=== PATIENT | female | born 1960 | race Caucasian/White ===

== ENCOUNTER 2020-05-03 12:08 | Emergency (ER) | payer SELFPAY ==
[2020-05-03 12:10] VITALS: BP 122/84; PULSE 84; RESP 16; TEMP 36.3; O2SAT 100; BMI 24.7
--- NOTE | 2020-05-03 12:11 | CTR_ITS ---
PROCEDURE INFORMATION: Exam: CT Head Without Contrast Exam date and time: 05/03/2020 12:26 PM Age: 60 years old Clinical indication: Injury or trauma; Fall; Blunt trauma (contusions or hematomas); Additional info: Head injury, gcs 3 TECHNIQUE: Imaging protocol: Computed tomography of the head without contrast. Radiation optimization: All CT scans at this facility use at least one of these dose optimization techniques: automated exposure control; mA and/or kV adjustment per patient size (includes targeted exams where dose is matched to clinical indication); or iterative reconstruction. COMPARISON: No relevant prior studies available. RADIATION DOSE METRICS: Total DLP (mGy-cm): 879.39 FINDINGS: Tubes, catheters and devices: Endotracheal tube. Brain: No acute post-traumatic brain injury. Symmetric caliber of the cortical sulci. Small-vessel ischemic change, including a left basal ganglia lacunar infarct of uncertain age. Cerebral ventricles: Normal configuration of the ventricles. Bones/joints: No acute calvarial injury. Paranasal sinuses: No sinus fluid. Mastoid air cells: No mastoid effusion. Soft tissues: Left parietal scalp hematoma. CT/CT head wo con* [id number] IMPRESSION: 1. Left parietal scalp hematoma. 2. No acute post-traumatic brain injury. 3. Small-vessel ischemic change, including a left basal ganglia lacunar infarct of uncertain age. Radiation Dose CTDIVOL = (mGy): DLP = 879.39 (mGy-cm)
--- NOTE | 2020-05-03 12:11 | CTR_ITS ---
PROCEDURE INFORMATION: Exam: CT Cervical Spine Without Contrast Exam date and time: 05/03/2020 12:26 PM Age: 60 years old Clinical indication: Injury or trauma; Fall; Blunt trauma; Additional info: Fall, head injury TECHNIQUE: Imaging protocol: Computed tomography images of the cervical spine without contrast. Radiation optimization: All CT scans at this facility use at least one of these dose optimization techniques: automated exposure control; mA and/or kV adjustment per patient size (includes targeted exams where dose is matched to clinical indication); or iterative reconstruction. COMPARISON: No relevant prior studies available. RADIATION DOSE METRICS: Total DLP (mGy-cm): 600.99 FINDINGS: Beam hardening artifact in association with metallic necklace. Tubes, catheters and devices: Endotracheal tube. Bones/joints: No acute bony injury or malalignment in the visualized cervical spine. Discs/Spinal canal/Neural foramina: Degenerative change and disc bulging. Nasopharynx: Fluid in the posterior nasopharynx and oropharynx. Thyroid: Inhomogeneous attenuation of the thyroid with a 6 mm nodular hypodensity with peripheral hyperdensity in the posterior left thyroid. Lungs: Apical blebs and interstitial prominence. Soft tissues: Ligamentous calcification. CT/CT cervical spin wo con* [id number] IMPRESSION: 1. No acute bony injury or malalignment in the visualized cervical spine. 2. Additional findings as described above. COMMENTS: Consistent with the [employer]'s Incidental Findings Committee white paper (J Am Jhon Radiol 2015): In patients aged 35 years and older with an incidental thyroid nodule equal to or greater than 1.[address], MRI or extrathyroidal US, further evaluation with dedicated thyroid US is recommended for patients with normal life expectancy and without comorbidities. For smaller nodules without suspicious features, no further evaluation or follow up is recommended. Radiation Dose CTDIVOL = (mGy): DLP = 600.99 (mGy-cm)
--- NOTE | 2020-05-03 12:12 | XRR_ITS ---
PROCEDURE INFORMATION: Exam: XR Chest, 1 View Exam date and time: 05/03/2020 12:33 PM Age: 60 years old Clinical indication: Device placement; Other: Et and ng placement; Additional info: Fall, post intubation TECHNIQUE: Imaging protocol: XR of the chest Views: 1 view. COMPARISON: No relevant prior studies available. FINDINGS: Tubes, catheters and devices: Endotracheal and feeding tubes. The endotracheal tube terminates 7.4 cm above the orly. Lungs: COPD, interstitial prominence, and chronic granulomatous disease. Pleural spaces: No pleural effusion. Heart/Mediastinum: No cardiomegaly. Bones/joints: Degenerative change. XR/XR chest 1V portable [id number] IMPRESSION: COPD, interstitial prominence, and chronic granulomatous disease.
[2020-05-03 12:38] VITALS: RESP 15
[2020-05-03 13:06] VITALS: BP 144/101; PULSE 108; RESP 18; O2SAT 100
[2020-05-03] MEDS: propofol 1,000 MG/100 ML INJ 1.9 MG IV (13:08)
[2020-05-03 13:19] LABS: ABG PCO2 42.3 mmHg (35-45); ABG PH Result 7.34 (7.35-7.45); Arterial Blood Gas Hematocrit 48.7 % (37-47); Base Excess ABG -2.8 mmol/L (-2.0-2.0); Blood Gas Allen Test Pos; Blood Gas Sample Type Arterial; HCO3 ABG 22.9 mmol/L (22-26)
[2020-05-03 13:21] LABS: Blood Gas Operator Identificat MONRO; Blood Gas Sample Site Radial, left; Oxygen Device VENT
--- NOTE | 2020-05-03 13:39 | ED_ITS ---
HPI - Trauma General: Chief Complaint: Trauma Stated Complaint: HEAD TRAUMA S/P FALL Time Seen by Provider: 05/03/20 12:11 Source: EMS Mode of arrival: EMS Limitations: other (intubated) History of Present Illness: HPI narrative: 60-year-old female patient who was brought in by EMS already intubated. Per EMS she was at [facility] when she slipped and fell and hit her head on a cab inet. She sustained immediate loss of consciousness. When EMS arrived there she appeared to have a seizure. She was unresponsive and so they proceeded to intubate her. She was going to be transferred to [facility] in [place] however because of the road conditions due to the winter she was diverted here for stabilization and disposition. Unable to obtain further history. MD complaint: fall Onset (ago): hour(s) (1) Loss of Consciousness: yes Location: head Review of Systems General: Reports: ROS unobtainable due to endotracheal tube Physical Exam Const: OTHER: intubated HENMT: HEAD & SCALP: laceration (6 cm scalp laceration in the left parietal region. It is bleeding.); no palpable skull fracture Eye: COMMON NORMALS: Equal, round and reactive pupils present and EOMs intact bilaterally PUPIL: Yes Equal, round and reactive pupils present Neck/C-Spine: OTHER: Hard cervical collar in place, no obvious deformity on palpation of her cervical spine Chest: COMMONS NORMALS: normal inspection of the chest and normal palpation of entire chest wall Resp: COMMON NORMALS: clear to auscultation bilaterally AUSCULTATION: clear to auscultation bilaterally Cardio: COMMON NORMALS: regular rhythm, S1 normal heart sound present, S2 normal heart sound present and No murmurs present (Cardio) RATE: tachycardic RHYTHM: regular rhythm HEART SOUNDS: S1 normal heart sound present and S2 normal heart sound present GI: COMMON NORMALS: Soft to palpation INSPECTION: Yes normal to inspection and No abdominal wall ecchymosis PALPATION: Yes Soft to palpation OTHER: no bruising noted. : EXTERNAL FEMALE EXAM: No External ecchymosis (female) Extremity: NARRATIVE EXTREMITY EXAM: Moves all limbs Neuro: OTHER: Intubated Procedures Laceration Laceration 1: Site: scalp Side (If applicable): left Size (cm): 6 Description: linear Depth: simple, single layer Pre-repair: wound explored, irrigated extensively and deep structures intact Skin layer closed with: other ([place]) Number of sutures: 8 ([place]) MDM - Trauma MDM Narrative: Medical decision making narrative: Patient with a head injury following a fall. Immediate loss of consciousness, EMS said she was unresp onsive on arrival and had a seizure so she was intubated and mechanically ventilated. In the emergency room she was stable, she was given a dose of intravenous Keppra for seizure prophylaxis. Head CT was negative for bleed. She is transferred to [facility] in [place] for further evaluation and management. Medical Records: Attestation: I reviewed the patient's medical records. Lab Data: Attestation: I reviewed the patient's lab results. Labs: Lab Results 05/03/20 05/03/20 05/03/20 Range/Units 12:58 12:58 12:58 WBC 19.0 H (4.0-10.0) 10^3/ uL RBC 5.14 (4.1-5.3) 10^6/u L Hgb 16.5 H (11.5-15.3) g/dL Hct 49.5 H (37.0-47.0) % MCV 96.3 (81-99) fL MCH 32.1 (28.0-34.0) pg MCHC 33.3 (30.0-36.0) g/dL RDW 13.0 (12.1-15.1) % Plt Count 223 (130-400) 10^3/c mm MPV 10.8 H (7.4-10.4) fL Neut % (Auto) 83.7 % Lymph % (Auto) 9.8 % [place] % (Auto) 5.1 % Eos % (Auto) 0.4 % Baso % (Auto) 0.3 % Neut # (Auto) 15.91 H (1.8-7.7) 10^3/u L Lymph # (Auto) 1.9 (0.8-4.8) 10^3/u L [place] # (Auto) 1.0 H (0.2-0.9) 10^3/u L Eos # (Auto) 0.1 (0.0-0.8) 10^3/u L Baso # (Auto) 0.1 (0.0-0.1) 10^3/u L Nucleated RBC % (a uto) 0 % Nucleated RBCs # 0.0 /100WBC PT 15.60 H (12.1-14.9) SECO NDS INR 1.20 (0.8-1.2) Specimen Type Sample Site ABG pH (7.35-7.45) ABG pCO2 (35-45) mmHg ABG pO2 (80.0-100.0) mmH g ABG HCO3 (22-26) mmol/L ABG Base Excess (-2.0-2.0) mmol/ L Cornell Test Hematocrit (37-47) % O2 Delivery Device FiO2 % Tidal Volume PEEP cmH20 Oil Burner Repairer ID Sodium 132 L (136-145) mmol/L Potassium 3.8 (3.5-5.1) mmol/L Chloride 101 (98-107) mmol/L Carbon Dioxide 23 (22-29) mmol/L Anion Gap 11.8 (5-19) BUN 8 (6-20) mg/dL Creatinine 0.7 (0.5-0.9) mg/dL GFR Calculation 85.9 L (90-130) mL/min Glucose 93 (65-115) mg/dL Calculated Osmolal ity 272 L (285-295) mOsm/k g Calcium 9.1 (8.5-10.5) mg/dL Total Bilirubin 0.4 (0.15-1.2) mg/dL AST 88 H (0-32) U/L ALT 80 H (0-33) U/L Alkaline Phosphata se 120 H (35-105) IU/L Total Protein 8.4 (6.6-8.7) g/dL Albumin 4.5 (3.5-5.2) g/dL Globulin 3.9 (1.3-4.6) g/dL 05/03/20 Range/Units 13:06 WBC (4.0-10.0) 10^3/ uL RBC (4.1-5.3) 10^6/u L Hgb (11.5-15.3) g/dL Hct (37.0-47.0) % MCV (81-99) fL MCH (28.0-34.0) pg MCHC (30.0-36.0) g/dL RDW (12.1-15.1) % Plt Count (130-400) 10^3/c mm MPV (7.4-10.4) fL Neut % (Auto) % Lymph % (Auto) % [place] % (Auto) % Eos % (Auto) % Baso % (Auto) % Neut # (Auto) (1.8-7.7) 10^3/u L Lymph # (Auto) (0.8-4.8) 10^3/u L [place] # (Auto) (0.2-0.9) 10^3/u L Eos # (Auto) (0.0-0.8) 10^3/u L Baso # (Auto) (0.0-0.1) 10^3/u L Nucleated RBC % (a uto) % Nucleated RBCs # /100WBC PT (12.1-14.9) SECO NDS INR (0.8-1.2) Specimen Type Arterial Sample Site Radial, left ABG pH 7.34 L (7.35-7.45) ABG pCO2 42.3 (35-45) mmHg ABG pO2 137.0 H (80.0-100.0) mmH g ABG HCO3 22.9 (22-26) mmol/L ABG Base Excess -2.8 L (-2.0-2.0) mmol/ L Cornell Test Pos Hematocrit 48.7 H (37-47) % O2 Delivery Device Vent FiO2 40.0 % Tidal Volume 0.40 PEEP 8.0 cmH20 Oil Burner Repairer ID [place] Sodium (136-145) mmol/L Potassium (3.5-5.1) mmol/L Chloride (98-107) mmol/L Carbon Dioxide (22-29) mmol/L Anion Gap (5-19) BUN (6-20) mg/dL Creatinine (0.5-0.9) mg/dL GFR Calculation (90-130) mL/min Glucose (65-115) mg/dL Calculated Osmolal ity (285-295) mOsm/k g Calcium (8.5-10.5) mg/dL Total Bilirubin (0.15-1.2) mg/dL AST (0-32) U/L ALT (0-33) U/L Alkaline Phosphata se (35-105) IU/L Total Protein (6.6-8.7) g/dL Albumin (3.5-5.2) g/dL Globulin (1.3-4.6) g/dL Imaging Data^: Other CT: Attestation: I personally reviewed and interpreted this imaging study as follows: Radiologist's impression: [facility] [address] [place] [address] CT Scan Report Signed Patient: Sruthi Woodson #: [id number] : 2Acc#:[id number] Age/Sex: 60 / FADM Date: 05/03/20 Loc: ERRoom/Bed: Attending Dr: Ordering Provider/Ordering MD: Joana Pand[place] [facility] [place] of Service: 05/03/20 Procedure(s): CT cervical spin wo con* [id number] Accession Number(s): [id number] Report Number: [id number] PROCEDURE INFORMATION: Exam: CT Cervical Spine Without Contrast Exam date and time: 05/03/2020 12:26 PM Age: 60 years old Clinical indication: Injury or trauma; Fall; Blunt trauma; Additional info: Fall, head injury TECHNIQUE: Imaging protocol: Computed tomography images of the cervical spine without contrast. Radiation optimization: All CT scans at this facility use at least one of these dose optimization techniques: automated exposure control; mA and/or kV adjustment per patient size (includes targeted exams where dose is matched to clinical indication); or iterative reconstruction. COMPARISON: No relevant prior studies available. RADIATION DOSE METRICS: Total DLP (mGy-cm): 600.99 FINDINGS: Beam hardening artifact in association with metallic necklace. Tubes, catheters and devices: Endotracheal tube. Bones/joints: No acute bony injury or malalignment in the visualized cervical spine. Discs/Spinal canal/Neural foramina: Degenerative change and disc bulging. Nasopharynx: Fluid in the posterior nasopharynx and oropharynx. Thyroid: Inhomogeneous attenuation of the thyroid with a 6 mm nodular hypodensity with peripheral hyperdensity in the posterior left thyroid. Lungs: Apical blebs and interstitial prominence. Soft tissues: Ligamentous calcification. CT/CT cervical spin wo con* [id number] IMPRESSION: 1. No acute bony injury or malalignment in the visualized cervical spine. 2. Additional findings as described above. COMMENTS: Consistent with the [employer]'s Incidental Findings Committee white paper (J Am Jhon Radiol 2015): In patients aged 35 years and older with an incidental thyroid nodule equal to or greater than 1.[address], MRI or extrathyroidal US, further evaluation with dedicated thyroid US is recommended for patients with normal life expectancy and without comorbidities. For smaller nodules without suspicious features, no further evaluation or follow up is recommended. Radiation Dose CTDIVOL = (mGy): DLP = 600.99 (mGy-cm) Dictated By:Lopez Rosas MD Signed By:Lopez Rosas MDSigned Date/Time:05/03/20 1308 DD/ 1307 CXR: Attestation: I personally reviewed and interpreted this imaging study as follows: Radiologist's impression: [facility] [address] [address] XRay Report Signed Patient: Sruthi Woodson #: [id number] : 2Acct#:[id number] Age/Sex: 60 / FADM Date: 05/03/20 Loc: [facility]/Bed: Attending Dr: Ordering Provider/Ordering MD: Joana Pandya [place], [facility] [place] of Service: 05/03/20 Procedure(s): XR chest 1V portable [id number] Accession Number(s): [id number] Report Number: [id number] PROCEDURE INFORMATION: Exam: XR Chest, 1 View Exam date and time: 05/03/2020 12:33 PM Age: 60 years old Clinical indication: Device placement; Other: Et and ng placement; Additional info: Fall, post intubation TECHNIQUE: Imaging protocol: XR of the chest Views: 1 view. COMPARISON: No relevant prior studies available. FINDINGS: Tubes, catheters and devices: Endotracheal and feeding tubes. The endotracheal tube terminates 7.4 cm above the orly. Lungs: COPD, interstitial prominence, and chronic granulomatous disease. Pleural spaces: No pleural effusion. Heart/Mediastinum: No cardiomegaly. Bones/joints: Degenerative change. XR/XR chest 1V portable [id number] IMPRESSION: COPD, interstitial prominence, and chronic granulomatous disease. Dictated By:Lopez Rosas MD Signed By:Ralph,Lopez MDSigned Date/Time:05/03/20 1317 DD/ 1316 CT Head: Attestation: I personally reviewed and interpreted this imaging study as follows: Radiologist's impression: [address] [place] [address] CT Scan Report Signed Patient: Sruthi Woodson #: [id number] : 2Acct#:[id number] Age/Sex: 60 / FADM Date: 05/03/20 Loc: ERRoom/Bed: Attending Dr: Ordering Provider/Ordering MD: Joana Pandya MD, [facility] [place] of Service: 05/03/20 Procedure(s): CT head wo con* [id number] Accession Number(s): [id number] Report Number: [id number] PROCEDURE INFORMATION: Exam: CT Head Without Contrast Exam date and time: 05/03/2020 12:26 PM Age: 60 years old Clinical indication: Injury or trauma; Fall; Blunt trauma (contusions or hematomas); Additional info: Head injury, gcs 3 TECHNIQUE: Imaging protocol: Computed tomography of the head without contrast. Radiation optimization: All CT scans at this facility use at least one of these dose optimization techniques: automated exposure control; mA and/or kV adjustment per patient size (includes targeted exams where dose is matched to clinical indication); or iterative reconstruction. COMPARISON: No relevant prior studies available. RADIATION DOSE METRICS: Total DLP (mGy-cm): 879.39 FINDINGS: Tubes, catheters and devices: Endotracheal tube. Brain: No acute post-traumatic brain injury. Symmetric caliber of the cortical sulci. Small-vessel ischemic change, including a left basal ganglia lacunar infarct of uncertain age. Cerebral ventricles: Normal configuration of the ventricles. Bones/joints: No acute calvarial injury. Paranasal sinuses: No sinus fluid. Mastoid air cells: No mastoid effusion. Soft tissues: Left parietal scalp hematoma. CT/CT head wo con* [id number] IMPRESSION: 1. Left parietal scalp hematoma. 2. No acute post-traumatic brain injury. 3. Small-vessel ischemic change, including a left basal ganglia lacunar infarct of uncertain age. Radiation Dose CTDIVOL = (mGy): DLP = 879.39 (mGy-cm) Dictated By:Lopez Rosas MD Signed By:Lopez Rosas MDSigned Date/Time:05/03/20 1315 DD/ 1314 EKG Data^: EKG 1: Attestation: I personally reviewed and interpreted this EKG as follows: EKG interpretation date: 05/03/20 EKG interpretation time: 12:33 Prior EKG tracings: not available for review Interpretation: Sinus tachycardia. Heart rate [address] changes. Critical Care Time Critical Care Time: Critical Care Time: Yes Total Critical Care Time: 30 Attestation: This case had a high probability of a clinically significant, sudden, or life threatening deterioration of this patient's condition which required my full and direct attention, intervention and personal management. Discharge Plan Discharge Patient Disposition: Xfer Short-Term Hosp Clinical Impression: Post traumatic seizure Head injury Qualifiers: Encounter type: initial encounter Qualified Code(s): S09.90XA - Unspecified injury of head, initial encounter Laceration of scalp Qualifiers: Encounter type: initial encounter Qualified Code(s): S01.01XA - Laceration without foreign body of scalp, initial encounter Condition: Stable Discharge Orders: Transfer Out of Facility (Order); Ordered 05/03/20 Ordered By: Joana Pandya Coding Level of Care Code ED Documentation Nurse for Yeng Indigo
[2020-05-03 13:42] LABS: Basophils # 0.1 10^3/uL (0.0-0.1); Basophils % 0.3 %; Eosinophils # 0.1 10^3/uL (0.0-0.8); Eosinophils % 0.4 %; Hematocrit 49.5 % (37.0-47.0); Hemoglobin 16.5 g/dL (11.5-15.3); Lymphocytes # 1.9 10^3/uL (0.8-4.8); Lymphocytes % 9.8 %; Mean Corpuscular HGB Conc 33.3 g/dL (30.0-36.0); Mean Corpuscular Hemoglobin 32.1 pg (28.0-34.0); Mean Corpuscular Volume 96.3 fL (81-99); Mean Platelet Volume 10.8 fL (7.4-10.4); Monocytes % 5.1 %; Neutrophils # 15.91 10^3/uL (1.8-7.7); Neutrophils % 83.7 %; Nucleated Red Blood Cells % 0 %; Platelet Count 223 10^3/cmm (130-400); Red Blood Count 5.14 10^6/uL (4.1-5.3)
[2020-05-03 13:45] VITALS: BP 133/88; PULSE 86; RESP 16; O2SAT 100
[2020-05-03 13:54] VITALS: O2SAT 100
[2020-05-03 14:01] LABS: Alanine Aminotransferase 80 U/L (0-33); Albumin Level 4.5 g/dL (3.5-5.2); Alkaline Phosphatase 120 IU/L (35-105); Anion Gap 11.8 (5-19); Aspartate Amino Transferase 88 U/L (0-32); Blood Urea Nitrogen 8 mg/dL (6-20); Calcium 9.1 mg/dL (8.5-10.5); Carbon Dioxide 23 mmol/L (22-29); Chloride 101 mmol/L (98-107); Globulin 3.9 g/dL (1.3-4.6); Glomerular Filtration Rate 85.9 mL/min (90-130); Glucose 93 mg/dL (65-115); Osmolality Calculated 272 mOsm/kg (285-295); Potassium 3.8 mmol/L (3.5-5.1); Sodium 132 mmol/L (136-145); Total Bilirubin 0.4 mg/dL (0.15-1.2); Total Protein 8.4 g/dL (6.6-8.7)
--- NOTE | 2020-05-03 14:04 | ECG_ITS ---
[facility] Test Date: 2020-05-03 Pat Name: Ruth Woodson Department: Room: Gender: Female Undergraduate Intern: : 1960 Requested By: Joana Pandya I Order Number: [id number] Ambika MD: Any Reno M.D. Measurements Intervals [place] Rate: 117 P: 64 VA: 148 QRS: 48 QRSD: 73 T: 59 QT: 342 QTc: 477 Interpretive Statements SINUS TACHYCARDIA POSSIBLE RIGHT ATRIAL ENLARGEMENT [0.25mV P WAVE] ABNORMAL RHYTHM ECG INTERPRETATION BASED ON A DEFAULT AGE OF 40 YEARS No previous ECG available for comparison Electronically Signed On 05-03-2020 15:21:24 STAFF PHYSICIAN by Any Reno M.D. [email or web address]
[2020-05-03 14:15] VITALS: O2SAT 100
== END 2020-05-03 14:20 | disposition short-term general hospital (02) ==
PROVIDERS: Emergency Provider Family Medicine
DX: S01.01XA Laceration without foreign body of scalp, initial encounter (principal); R56.1 Post traumatic seizures; W01.198A Fall on same level from slipping, tripping and stumbling with subsequent striking against other object, initial encounter
CPT/HCPCS: 12002; 36600; 51702; 70450; 71045; 72125; 80053; 82803; 85025; 85610; 87070; 87077; 87205; 93005; 94002; 94799; 96365; 96366; 96375; 99291; 99292; J1953; J2704